=== PATIENT | male | born 1940 | race Caucasian/White ===

== ENCOUNTER 2017-01-04 12:13 | Emergency (ER) | payer OTHER ==
[~2017-01-04] VITALS: Ht 182.9 cm; Wt 65.8 kg
[2017-01-04] MEDS ORDERED: ZESTRIL5 MG PO (12:55)
[2017-01-04] MEDS ORDERED: D3-50001 TAB PO (12:55)
[2017-01-04] MEDS ORDERED: TERAZOSIN HCL5 MG PO (12:56)
[2017-01-04] MEDS ORDERED: COLACE100 MG PO (12:57)
[2017-01-04] MEDS ORDERED: ASPIR 8181 MG PO (12:57)
[2017-01-04] MEDS ORDERED: MIRTAZAPINE15 M2 PO (12:58)
[2017-01-04 12:59] LABS: BASOPHIL % 0.5 % (0-2); PLATELET COUNT 248 x10^3mcL (130-400); RED CELL DISTRIBUTION WIDTH 12.5 % (11.5-14.5)
[2017-01-04] MEDS ORDERED: TYLENOL325 M1 PO (13:00)
[2017-01-04] MEDS ORDERED: IMO2 PO (13:01)
[2017-01-04] MEDS ORDERED: GOOD NEIGH1200 MG/15 PO (13:02)
[2017-01-04] MEDS ORDERED: DULCOLAX STOOL100 MG PO (13:03)
[2017-01-04 13:05] LABS: CARBON DIOXIDE 19.3 mmol/L (21-32); CHLORIDE SERUM 110 mmol/L (98-107); CREATININE SERUM 1.5 mg/dL (0.7-1.3); GLUCOSE SERUM 104 mg/dL (74-106); POTASSIUM SERUM 3.9 mmol/L (3.5-5.1); SODIUM SERUM 142 mmol/L (136-145)
[2017-01-04 13:18] LABS: ALBUMIN 3.7 g/dL (3.4-5.0); ALKALINE PHOSPHATASE 51 U/L (46-116); ALT/SGPT 14 U/L (16-63); AST/SGOT 13 U/L (15-37); BILIRUBIN TOTAL 0.6 mg/dL (0.20-1.00); MAGNESIUM 1.7 mg/dL (1.8-2.4); PHOSPHOROUS 3.1 mg/dL (2.5-4.9); TOTAL PROTEIN, SERUM 7.1 g/dL (6.4-8.2)
[2017-01-04 13:20] LABS: CHOLESTEROL 218 mg/dL (<200); HDL CHOLESTEROL 29 mg/dL (40-60)
[2017-01-04 15:18] LABS: UA SPECIFIC GRAVITY 1.025 (1.005-1.035); microscopic required? YES; urine erythrocyte NEGATIVE (NEGATIVE)
[2017-01-04 15:30] VITALS: BP 136/82
== END 2017-01-04 15:33 | disposition home or self-care (01) ==
LOC: ED 12:13
PROVIDERS: Emergency Medicine
DX: E86.0 Dehydration (principal); R53.1 Weakness; I10 Essential (primary) hypertension; H91.90 Unspecified hearing loss, unspecified ear
CPT/HCPCS: J7030